=== PATIENT | female | born 1970 | race Caucasian/White ===

== ENCOUNTER 2017-03-07 20:32 | Emergency (ER) | payer BC ==
[~2017-03-07] VITALS: Ht 172.7 cm; Wt 90.7 kg
--- NOTE | ~2017-03-07 | CR112 ---
[facility] A Service of [facility] RADIOLOGY TEXT RESULTS PATIENT: BRAYDEN MARTÍNEZ LOCATION: SED : 74 UNIT #: [id number] AGE: [address]: GERARD DONNELLY SEX: F ORDER DR: [id number] [place] [id number] E MR#: [id number] Acc #: [id number] NAME: BRAYDEN MARTÍNEZ. : 1970 SEX: F STUDY DATE/TIME: 03/07/2017 21:42 UNIT: SED ROOM: STUDY DESCRIPTION: CR Finger 2 View 4Th Lt Attending Physician: Gerard Donnelly Ordering Physician: Gerard Donnelly Primary Care Physician: Lori Roldan M.D. MEDICAL IMAGING REPORT This report is preliminary unless electronic signature is present. EXAM Left fourth digit 03/07 at 21:42 INDICATIONS Laceration of the distal fourth digit prior to arrival today with a pair of edgar. Pain in the digit. FINDINGS Two views of the fourth digit were obtained. Laceration is noted over the distal end of the finger. No fracture or radiopaque foreign body is seen. The bones are normal. IMPRESSION Soft tissue injury without fracture or radiopaque foreign body. Dictated by... Gee Vidal Jr., M.D. THIS IS AN ELECTRONICALLY VERIFIED REPORT Gee Vidal Jr., M.D. at 03/08/2017 6:06 AM MICHELLE/jaren TD: 03/08/2017 03:39 JOB #: [id number] MEDICAL IMAGING REPORT Page 1 of 1
[~2017-03-07 20:32] MED LIST: KETOPROFEN PO
[2017-03-07] MEDS ORDERED: LEXAPRO20 MG PO (20:52)
== END 2017-03-07 23:49 | disposition home or self-care (01) ==
LOC: SED 20:32
DX: S61.215A Laceration without foreign body of left ring finger without damage to nail, initial encounter (principal); F41.9 Anxiety disorder, unspecified; W45.8XXA Other foreign body or object entering through skin, initial encounter; Y92.009 Unspecified place in unspecified non-institutional (private) residence as the place of occurrence of the external cause
CPT/HCPCS: 12001; 73140; 99283